=== PATIENT | female | born 1950 | race Caucasian/White ===

== ENCOUNTER 2017-02-28 11:14 | Inpatient (IN) | payer OTHER ==
[2017-02-28] VITALS (8 sets, daily range): BP systolic 71–118; BP diastolic 53–73; PULSE 84–109; RESP 14–26; O2SAT 94–100
[~2017-02-28] VITALS: Ht 162.6 cm; Wt 59.1 kg
--- NOTE | 2017-02-28 11:47 | ED.REPORT ---
HPI-Dyspnea / Wheezing Date of Service Feb 28, 2017 ED Provider: Miles Sierra MD A 66 year old female with a history of hypertension, pneumonia and DVT presents to the ED possible DVT. The pt began experiencing mild left lower extremity swelling on 02/25/2017. By the next morning, the swelling had worsened significantly. This has persisted since and is accompanied by nausea and dyspnea on exertion. The pt denies hematemesis or hematochezia. She states that this does not feel similar to pneumonia. Nursing Notes Stated Complaint: LEFT LEG SWOLLEN,SHORTNESS OF BREATHE Chief Complaint: General Complaint Nursing Notes Reviewed: Yes Allergies: Coded Allergies: No Known Allergies (Unverified , 02/28/17) Scheduled Lisinopril (Lisinopril) 20 Mg Tablet 20 MG PO QAM Scheduled PRN Aspirin (Aspirin) 325 Mg Tablet 325-650 MG PO Q6H PRN PRN Headache Ibuprofen (Ibuprofen) 200 Mg Capsule 200-400 MG PO Q6H PRN PRN For Pain Melatonin (Melatonin) 10 Mg Tablet 10 MG PO HS PRN PRN For Insomnia diphenhydrAMINE HCl (Benadryl) 25 Mg Capsule 25-50 MG PO DAILY PRN PRN ALLERGIES General Time Seen by MD: 11:47 Chief Complaint Other (Possible DVT) Hx Obtained From: Patient Arrived By: Walk-in Sudden in Onset?: No Onset Occurred: 3 days ago Symptom Duration: Since onset Recent Healthcare: No recent hospitalization Similar Sx Previous: Yes Past Medical History Past Medical History hypertension DVT pneumonia Past Surgical History bunion removal Smoking History Never Smoker Social History Alcohol Use: "Social" Other Social History: Ambulatory Status Independent Review of Systems Review of Systems Note: left lower extremity swelling Respiratory: Reports: Dyspnea on exertion Cardiovascular: Denies: Chest pain Musculoskeletal: Denies: Back pain, Neck pain Skin: Denies Rash Complete sys rev & neg: except as marked. GI: Denies: Abdominal pain, Hematemesis, Hematochezia, Vomiting Physical Exam Initial Vital Signs Vital Signs (First) Date Time Temp Pulse Resp B/P Pulse Ox O2 Delivery O2 Flow Rate FiO2 02/28/17 11:39 35.2 109 22 71/53 96 02/28/17 12:14 Room Air Initial VS: Reviewed General/Constitutional: Awake, Alert Neck: Atraumatic, Supple, Full range of motion Respiratory / Chest: Atraumatic, Breath sounds NL, Breath sounds = bilat, No respiratory distress Cardiovascular: Regular rhythm, Heart sounds NL Heart Rate / Rhythm: Positive: Tachycardia posterior tibial pulse audible by Doppler ENT: Atraumatic, Airway patent, Mucous membranes moist Abdomen: Atraumatic, Soft, Non-tender Back: Atraumatic, Full range of motion Lower Extremity / Pelvis / MS: Full range of motion, Neurologic intact left lower extremity edema Skin: Color NL, No rash, Warm, Dry Neurologic: Oriented X3, Speech NL, No motor deficits, No sensory deficits Head / Eyes: Atraumatic, Normocephalic, PERRL, EOMI Upper Extremity / MS: Atraumatic, Full range of motion Psychiatric: Affect NL, Mood NL Interpretation & Diagnostics Interpretation & Diagnostics: Left Veinous Duplex US: IMPRESSION: 1. Extensive deep venous thrombosis demonstrated throughout the left lower extremity extending from the common femoral to popliteal veins. Findings were reported to Dr. Escalante on 02/28/17 at 2:35 PM by the apparatus engineering technologist. Dictated by: Joshua Olson M.D. on 02/28/2017 at 14:54 Approved by: Joshua Olson M.D. on 02/28/2017 at 14:57 CT Chest Angio PE: IMPRESSION: 1. Exam is positive for pulmonary embolic disease, left greater than right. 2. Patchy bilateral subpleural areas of atelectasis, likely related to embolic disease. Mild elevation of the left hemidiaphragm. Note: Findings discussed with Dr. Sierra in the ED at 1410 hrs. on 02/28/2017 Dictated by: Priyank Latham M.D. on 02/28/2017 at 14:11 Approved by: Priyank Latham M.D. on 02/28/2017 at 14:24 Lab Results Interpretation Result Diagram: 02/28/17 1200 02/28/17 1223 Test 02/28/17 12:00 02/28/17 12:23 White Blood Count 15.0th/mm3 (3.8-10.1) Red Blood Count 4.47mil/mm3 (3.90-5.20) Hemoglobin 15.8g/dL (12.0-15.6) Hematocrit 44.7% (35.0-46.0) Mean Corpuscular Volume 100.0fL (81-100) Mean Corpuscular Hemoglobin 35.3pg (27.0-35.0) Mean Corpuscular Hemoglobin Concent 35.3% (32.0-37.0) Red Cell Distribution Width 15.2% (12.3-15.4) Platelet Count 189bil/L (150-400) Neutrophils (%) (Auto) 82.0% (40-74) Lymphocytes (%) (Auto) 7.7% (14-46) Monocytes (%) (Auto) 9.1% (4-12) Eosinophils (%) (Auto) 0.5% (0-5) Basophils (%) (Auto) 0.3% (0-3) Prothrombin Time 10.3sec (8.1-12.5) Prothromb Time International Ratio 0.96ratio D-Dimer 2.29mg/L FEU (<0.50) Activated Partial Thromboplast Time 26.1sec (22.8-33.0) Sodium Level 130mEq/L (134-144) Potassium Level 3.5mEq/L (3.5-5.2) Chloride Level 90mEq/L (97-108) Carbon Dioxide Level 17mmol/L (18-29) Blood Urea Nitrogen 23mg/dL (8-27) Creatinine 1.64mg/dL (0.57-1.00) Estimat Glomerular Filtration Rate 45mL/min (>59) Glucose Level 112mg/dL (60-99) Calcium Level 8.7mg/dL (8.5-10.1) Magnesium Level 1.6mg/dL (1.6-2.6) Total Bilirubin 0.9mg/dL (0.0-1.2) Aspartate Amino Transf (AST/SGOT) 51U/L (0-50) Alanine Aminotransferase (ALT/SGPT) 27U/L (0-32) Alkaline Phosphatase 268U/L (25-165) Troponin T < 0.010ug/L (0.0-0.011) Pro-B-Type Natriuretic Peptide 299.9pg/mL (0-287) Total Protein 6.8g/dL (6.4-8.4) Albumin 3.3g/dL (3.4-5.0) ECG Interpretation ECG Interpretation: normal sinus rhythm with a rate of 92 Time: 12:32 Interpreted by: ED physician X-Ray Chest Interpretation Chest Xray Interpretation: IMPRESSION: 1. Findings compatible with COPD without acute consolidation. Dictated by: Joshua Olson M.D. on 02/28/2017 at 12:37 Approved by: Joshua Olson M.D. on 02/28/2017 at 12:37 Interpretation / Wet Read by: Interpret - Radiologist Re-Eval/Medical Decision Med Decision/Clinical Course Findings suspicious for DVT and PE with associated hypotension and tachycardia. The pressure has been stabilized reasonably with IV fluids. Cardiology is consulted and will most likely be taking this patient to the [facility] for catheter directed TPA. Re-Evaluation/Progress #1: Time of Eval: 12:29 Patient Status: Condition improved Re-Evaluation/Progress Note: Pt rechecked, who is now pain free. Radiology results are discussed. Re-Evaluation/Progress #2: Time of Eval: 13:36 Patient Status: Condition improved Re-Evaluation/Progress Note: Pt rechecked, who is comfortable. Vital signs are reviewed. Re-Evaluation/Progress #3: Time of Eval: 14:12 Re-Evaluation/Progress Note: Pt rechecked and lab results are discussed. Re-Evaluation/Progress #4: Time of Eval: 14:19 Re-Evaluation/Progress Note: Pt rechecked, who is stable. The diagnosis and plan for admission are discussed. The pt understands and agrees with the plan. All questions are addressed at this time. Consultation #1: Referral / Consult Name: Peryc Jackson MD Call Returned at: 14:18 Levelman: Will see patient, Agrees with eval, Agrees with plan Note: Spoke with Dr. Jackson, pulmonology, regarding pt's case. He agrees with the evaluation and will see the pt. Consultation #2: Referral / Consult Name: Anila Cotton DO Call Returned at: 14:38 Levelman: Agrees with eval, Agrees with plan, Accepts admit Note: Spoke with Dr. Cotton, hospitalist, regarding pt's case. Dr. Cotton agrees with the evaluation and agrees to admit the pt. Counseled Regarding: Diagnosis, Lab results, Need for admission Discharge & Departure Impression: Primary Impression: Pulmonary embolism Pulmonary embolism type: other Chronicity: acute Additional Impression: DVT (deep vein thrombosis) in Disposition: ADMITTED TO HOSPITAL Discharge Condition All VS Reviewed: Yes Condition: Stable Referrals: German Villarreal DO Crit Care Except Billable Proc Time Spent: 75-104 minutes (88 minutes) Services Performed: Patient management by me, Time spent at bedside, Reviewing test results, Reviewing imaging, Discussing patient care, Documentation in record, Time with fam/surrogate Scribe Attestation Portions of this note were transcribed by Joanne Liang. I, Dr. Sierra personally performed the history, physical exam and medical decision-making; I reviewed and confirmed the accuracy of the information in the transcribed note. copies to: German Villarreal Timothy S DO Feb 28, 2017 11:47 JOANNE LIANG Feb 28, 2017 11:56
[2017-02-28] MEDS ORDERED: 0.9% Sodium Chloride 1,000 ML IV ONE (11:51)
[2017-02-28] MEDS ORDERED: Ondansetron 2 mg/mL 2 mL Inj IVPUSH ONE (11:55)
[2017-02-28 12:12] LABS: BASOPHILS % (AUTO) 0.3 % (0-3); EOSINOPHILS % (AUTO) 0.5 % (0-5); MONOCYTES % (AUTO) 9.1 % (4-12); Mean Corpuscular Hemoglobin 35.3 pg (27.0-35.0); Platelet Count 189 bil/L (150-400)
--- NOTE | 2017-02-28 12:39 | DRSVH ---
PROCEDURE: X-RAY CHEST ONE VIEW, PORTABLE ([id number]) INDICATIONS: dyspnea TECHNIQUE: One view of the chest was acquired. COMPARISON: None. FINDINGS: Surgical changes and devices: None. Lungs and pleura: No pleural effusions or pneumothorax. There is hyperinflation of the lungs with mi ld flattening of the hemidiaphragms compatible with COPD. Lungs are clear. Mediastinum: Mediastinal contours appear normal. Heart size is normal. Bones and chest wall: No suspicious bony lesions. Overlying soft tissues appear unremarkable. IMPRESSION: 1. Findings compatible with COPD without acute consolidation. Dictated by: Joshua Olson M.D. on 02/28/2017 at 12:37 Approved by: Joshua Olson M.D. on 02/28/2017 at 12:37
[2017-02-28 13:09] LABS: Magnesium 1.6 mg/dL (1.6-2.6)
[2017-02-28 13:12] LABS: D-Dimer 2.29 mg/L FEU (<0.50); INR 0.96 ratio
[2017-02-28 13:23] LABS: TROPONIN T < 0.010 ug/L (0.0-0.011)
[2017-02-28] MEDS ORDERED: Heparin 5,000 Unit/mL Inj IVPUSH ONE (13:45)
[2017-02-28] MEDS ORDERED: Heparin 25K Unit/500mL 0.45 NS 25,000 UNIT in IV Premix 1 EACH IV ONE (13:45)
[2017-02-28] MEDS: 0.9% Sodium Chloride 1,000 ML IV SCH ×2 (14:09→23:45)
--- NOTE | 2017-02-28 14:26 | DRSVH ---
PROCEDURE: CT ANGIO CHEST PULMONARY EMBOLISM ([id number]) INDICATIONS: dyspnea, h/o PE, leg swelling TECHNIQUE: After the administration of intravenous contrast, 2 mm thick sections acquired from the pulmonary api ceci to the posterior costophrenic angles. 3-dimensional maximum intensity projection (MIP) coronal a nd sagittal reformats were then acquired through the thorax. For radiation dose reduction, the follo wing was used: automated exposure control, adjustment of mA and/or kV according to patient size. COMPARISON: None. FINDINGS: Image quality: Excellent. Pulmonary arteries: Filling defects in the pulmonary arteries are consistent with acute pulmonary emb olic disease, with the largest lesion being a saddle embolus at the bifurcation of the left main pulm onary artery. There is less prominent and more eccentric thrombus in the proximal portion of the righ t lower lobe artery, possibly subacute or chronic. Lungs and pleura: Lungs show areas of subpleural atelectasis, likely related to pulmonary embolic di sease. No pleural effusions or pneumothorax. Central and peripheral airways are patent. Mediastinum: Heart size is normal, without pericardial effusion. No mediastinal or hilar adenopathy . Thoracic aorta is normal in caliber and enhancement. Esophagus is normal in caliber, without hiat al hernia. Bones and chest wall: No suspicious bony lesions. Ribs and thoracic spine appear intact throughout. Thyroid gland appears normal. No axillary or supraclavicular adenopathy. Abdomen: Visualized upper abdominal solid organs appear normal in the early arterial phase of enhanc ement. IMPRESSION: 1. Exam is positive for pulmonary embolic disease, left greater than right. 2. Patchy bilateral subpleural areas of atelectasis, likely related to embolic disease. Mild elevatio n of the left hemidiaphragm. Note: Findings discussed with Dr. Sierra in the ED at 1410 hrs. on 02/28/2017 Dictated by: Priyank Latham M.D. on 02/28/2017 at 14:11 Approved by: Priyank Latham M.D. on 02/28/2017 at 14:24
--- NOTE | 2017-02-28 14:59 | DRSVH ---
PROCEDURE: US VEINOUS LEG DUPLEX UNILATERAL, LEFT INDICATIONS: ho DVt, swelling TECHNIQUE: Real-time imaging, as well as color and pulse Doppler interrogation, were performed of the lower extr emity deep veins from the inguinal ligament to the popliteal fossa. COMPARISON: None. FINDINGS: There is occlusive filling defect within the left common iliac, external iliac, common femoral, super ficial femoral, and popliteal veins. The inferior vena cava appears patent. IMPRESSION: 1. Extensive deep venous thrombosis demonstrated throughout the left lower extremity extending from the common femoral to popliteal veins. Findings were reported to Dr. Escalante on 02/28/17 at 2:35 PM by the magnetic resonance technologist. Dictated by: Joshua Olson M.D. on 02/28/2017 at 14:54 Approved by: Joshua Olson M.D. on 02/28/2017 at 14:57
[2017-02-28] MEDS ORDERED: MELA10TA2 PO (15:24)
[2017-02-28] MEDS ORDERED: ASPI325T32 PO (15:24)
[2017-02-28] MEDS ORDERED: DIPH25CA6 PO (15:24)
[2017-02-28] MEDS ORDERED: IBUP200C PO (15:24)
[2017-02-28] MEDS ORDERED: LISI-567 PO (15:24)
[2017-02-28] MEDS ORDERED: Polyethylene Glycol (PEG) 17 Gm Powder PO PRN (16:10)
[2017-02-28] MEDS ORDERED: Senna-Docusate 8.6-50 mg Tablet PO PRN (16:10)
[2017-02-28] MEDS ORDERED: Alum-Mag Hydrox-Simeth 30 mL Suspension PO PRN (16:10)
[2017-02-28] MEDS ORDERED: Heparin 5,000 Unit/mL Inj IVPUSH PRN (16:15)
[2017-02-28] MEDS ORDERED: Heparin 1,000 Units/500 mL NS Premix IV ONE (16:20)
[2017-02-28] MEDS ORDERED: 0.9% Sodium Chloride 200 ML ONE (16:21)
[2017-02-28] MEDS ORDERED: Heparin 1,000 Unit/mL 10 mL Inj ONE ×2 (16:21→17:37)
[2017-02-28] MEDS ORDERED: Heparin 10,000 Unit/1,000 mL NS Premix IV ONE (16:34)
[2017-02-28] MEDS ORDERED: fentaNYL-PF 50 mCg/mL 2 mL Inj ONE (17:06)
--- NOTE | 2017-02-28 17:12 | CONS ---
[address] [address] CONSULTATION REPORT PATIENT: JAYME MOORE : 1950 MR#: [id number] ADMIT: 02/28/2017 JOB ID: [id number] DATE OF SERVICE: 02/28/2017 REQUESTING PHYSICIAN: Miles Sierra DO REASON FOR EVALUATION: Bilateral pulmonary emboli. HISTORY OF PRESENT ILLNESS: I saw and examined the patient. Please see MARY LOU Santana 's notes for details. IMPRESSION: 1. Submassive bilateral pulmonary emboli with hemodynamic compromise. 2. Occlusive extensive deep venous thrombosis throughout the left lower extremity, extending from left common femoral to left popliteal veins. 3. History of hypertension. PLAN: The patient does not have contraindication to thrombolysis. She does not have uncontrolled hypertension, recent trauma, recent surgery, bleeding disorder, or stroke. She will benefit from catheter directed thrombolysis. The risks and benefits of the procedure have been explained to the patient. She understands and agrees to proceed with the procedure. SUNDAY
--- NOTE | 2017-02-28 17:14 | PCM.CHPCAR ---
Consult Subjective Date of service Feb 28, 2017 Date of admit Feb, Provider Requesting Consult Requesting Provider: Miles Sierra DO Primary Care Physician Primary Care Physician: Other,Physician Chief Complaint Patient presented with leg pain/swelling and SOB History of Present Illness This is a pleasant 66 year old female who presented to the ER with left leg pain /swelling, and SOB. Significant past medical hx; HTN, pneumonia, DVT. On Feb.24, the patient woke up with pain in her left leg. She felt it, and noticed that it felt swollen. She reports not being able to bend her leg. Her leg pain and swelling remained the same through Monday, and Monday, she began to develop SOB and dyspnea with light activity, in addition to her leg pain and swelling. Ximena reports not doing anything that she thought would precipitate the leg swelling/pain, or the onset of SOB. She reports that they seemed to come out of the blue. Ximena symptoms did not improve, or lessen, so she reported to the ER today with continued SOB, dyspnea, and leg pain. Left lower extremity ultrasound demonstrated extensive DVT from common femoral and popliteal veins. CTA demonstrated saddle embolus at the bifurcation of the left main pulmonary artery. There is less prominent and more eccentric thrombus in the proximal portion of the right lower lobe artery, possibly subacute or chronic. Echo, mild RV enlargement Review of Systems Review of Systems 12 point review of system is negative except the ones mentioned in the HPI. The patient denies any recent trauma, recent surgery, bleeding disorder, or stroke. Eyes: Denies: Double or blurred vision Other Problem/recent change in vision Reduced vision Temporary vision loss PMH Past Medical History HTN, PNA, DVT Scheduled Lisinopril (Lisinopril) 20 Mg Tablet 20 MG PO QAM (Reported) Scheduled PRN Aspirin (Aspirin) 325 Mg Tablet 325-650 MG PO Q6H PRN PRN Headache (Reported) Ibuprofen (Ibuprofen) 200 Mg Capsule 200-400 MG PO Q6H PRN PRN For Pain ( Reported) Melatonin (Melatonin) 10 Mg Tablet 10 MG PO HS PRN PRN For Insomnia (Reported) diphenhydrAMINE HCl (Benadryl) 25 Mg Capsule 25-50 MG PO DAILY PRN PRN ALLERGIES (Reported) Current Inpatient Medications Current Medications Morphine Sulfate UP TO 10 mg IV in a 4 h... Q15MIN PRN IVPUSH Last administered on 02/28/17 12:12; Admin Dose 4 MG; Start 02/28/17 at 11:55; Stop at 16:57; Status DC Sodium Chloride 1,000 ml @ 100 mls/hr Q10H IV Last administered on 02/28/17 14: 09; Admin Dose 100 MLS/HR; Start 02/28/17 at 13:45; Stop 02/28/17 at 16:57; Status DC Ondansetron HCl 4 to 8 mg Q4H PRN IVPUSH; Start 02/28/17 at 16:10; Stop 02/28/17 at 16:57; Status DC Senna 2 tablet BID PRN PO; Start 02/28/17 at 16:10; Stop 02/28/17 at 16:57; Status DC Al Hydrox/Mg Hydrox/Simethicone 30 ml Q6 PRN PO; Start 02/28/17 at 16:10; Stop 02/28/17 at 16:57; Status DC Polyethylene Glycol 17 gm DAILY PRN PO; Start 02/28/17 at 16:10; Stop 02/28/17 at 16:57; Status DC Heparin Sodium (Porcine) Per Protocol for a... PRN PRN IVPUSH; Start 02/28/17 at 16:15; Stop 02/28/17 at 16:57; Status DC Allergies: Coded Allergies: No Known Allergies (Unverified , 02/28/17) Family History Family History Father from bladder cancer at 82, smoker Mother with venous valve incompetency, at 78 from stroke Grandfather with "small leg veins" Social History Hx Alcohol Use: YesAlcoholic Drinks Per Day: 1-2, 5 days a weekHx Substance Use: NoHx Tobacco Use: No Smoking Status: Never Smoker Living Arrangement: with Family (With ) Exam Vital Signs Vital Sign - Last Date Time Temp Pulse Resp B/P Pulse Ox O2 Delivery O2 Flow Rate FiO2 02/28/17 16:56 110 20 95/63 99 Room Air 02/28/17 11:39 35.2 Objective General: no acute distress. EENT: eyes unicteric, MMM Neck: supple, no thyromegaly Pulmo: normal breathing sounds bilaterally, no crackles, no wheezing Cardio: RRR, S1&S2 normal; no murmur appreciated, JVP is not elevated Abdomen: nontender with palpation Exeremities: 2 (+) pitting edema noted in LLE, peripheral pulses are preserved Skin: no rash Neuro: A@Ox3, no gross abnormalities Lab and Diagnostics Result Diagram: 02/28/17 1200 02/28/17 1223 Assessment & Plan Assessment The patient has an extensive DVT to her LLE, and also has acute pulmonary embolic disease in her pulmonary arteries. Problems: (1) DVT (deep venous thrombosis) Qualifiers: DVT location: lower extremity Laterality: left Plan: Patient is on a heparin drip. Status: Acute ICD Code: I82.409 (2) Saddle embolism of pulmonary artery Qualifiers: Chronicity: acute Plan: Pt is to go to the [facility], and receive catheter directed thrombolysis Status: Acute ICD Code: I26.92 Maddy Barahona Feb 28, 2017 17:14 Plan: Pt is to go to the [facility], and receive thrombolysis Status: Acute ICD Code: I26.92 Maddy Barahona Feb 28, 2017 17:14
[2017-02-28] MEDS ORDERED: Alteplase (Cathflo) Inj 10 MG in 0.9% Sodium Chloride 250 ML IV ONE (17:25)
[2017-02-28] MEDS ORDERED: HYDROmorphone 1 mg/mL Inj IV PRN (17:35)
[2017-02-28] MEDS ORDERED: LORazepam 0.5 mg Tablet PO PRN (17:35)
--- NOTE | 2017-02-28 18:17 | PCM.HPMED ---
Subjective Date of Service Feb 28, 2017 Primary Provider: Admitting Physician: Percy Jackson MD Primary Care Physician: Other,Physician Attending Physician: Percy Jackson MD Chief Complaint: Patient is a 66-year-old female from home To the ED with significant SOB and left leg swelling. History of Present Illness: Patient carries a medical history significant for only hypertension. Per patient, she states significant left leg swelling suddenly appeared last Monday morning (02/25) when she woke up, extending from thigh to feet. Swelling increased by Monday with associated nausea and vomiting. And on Monday , patient additionally has palpitation and diaphoretic. Patient sought medical attention after she became more dyspneic with exertion and lightheadedness today. Ambulate limited to 5 feet with associated shortness of breath. Pt reports that she is a fairly active person, doing yardwork before Monday, and denies any recent traveling or periods of immobility. She denies any prior histories of miscarriages. Interestingly, patient reports a family history of blood clots, great grandfather positive for blood clots in the lower legs, and mother with "small leg veins". Pt had a similar episode of leg swelling in the past, right leg swelling. Patient reports no workup was done nor medication given however. Recently, patient has noted significant weight loss, 10-15 pounds within the last 6 months. She reports early satiety. Patient though denies any abdominal pain, black tarry stool, constipation, hematemesis, or ever completed a screening colonoscopy. In the ED, patient found to have significant left lower leg swelling with tachycardia and blood pressure 72/52. Emergent duplex found extensive DVT thrombosis extending from the left common femoral to the popliteal veins. ECT angio showed saddle emboli in the left main pulmonary arteries and in the proximal portion of the right lower lobe artery. Cardiology was consulted, and agreed evaluate patient for ECOS prior to admission into CCU. Review of Systems: A comprehensive review of systems was conducted with the patient and found to be negative except as above in the History of Present Illness. Allergies Coded Allergies: No Known Allergies (Unverified , 02/28/17) Home Medications Lisinopril 20 mg daily PMH Hypertension Surgical History Tonsillectomy Family History Father from bladder cancer at 82, smoker Mother with venous valve incompetency, at 78 from stroke Grandfather with "small leg veins" Social History Hx Alcohol Use: Yes Alcoholic Drinks Per Day: 1-2, 5 days a week Hx Substance Use: No Hx Tobacco Use: No Smoking Status: Never Smoker Living Arrangement: with Family (With ) Exam Vital Signs Vital Sign - Last Date Time Temp Pulse Resp B/P Pulse Ox O2 Delivery O2 Flow Rate FiO2 02/28/17 16:56 102 20 113/73 99 Room Air 02/28/17 11:39 35.2 Exam General: No acute distress, appropriately interactive, no conversation or dysrhythmia HEENT: Normocephalic, atraumatic. PERRLA, EOMI, Anicteric sclerae, moist conjunctivae. Neck: cannot appreciate JVD, No bruits. No lymphadenopathy or thyromegaly. Cardiovascular: Regular rate and rhythm with no murmurs, rubs, or gallops appreciated Pulmonary: Bilateral air sound, mild coarse breath of the lower basis, otherwise no crackles or wheezes. Abdomen: +Bowel sound, Soft, nontender, nondistended. Extremities: No clubbing or cyanosis, no lymphedema, unilateral left leg 2+ pitting edema up to the thigh, no tenderness, no redness or heat. Skin: Normal temperature, turgor, and texture; no rash. No visualized skin ulcer. Neurological: CN II-VII grossly intact, moving equally on all 4 extremities Psychiatric: Normal mood and affect. AOx3 Lab and Diagnostics Result Diagram: 02/28/17 1200 02/28/17 1223 Assessment & Plan Patient is a 66-year-old female with a medical history significant for hypertension presents with left leg pain and shortness of breath, found to have massive pulmonary embolism with left leg DVT. Thromboembolic disease -Unprovoked: Possible malignancy, hereditary-[place] 5 mutation. -ECOS per cardiology to reduce clot burden -Heparin drip DVT PE protocol in place -athletic monitor Kidney insufficiency -Likely right heart failure, hypoperfusion -anion gap 23, possible lactic acidosis -latic acid ordered -conservative fluid management until Echo reading back Transaminitis -AST and alkphos elevated -perhaps congested liver -lipase ordered Leukocytosis -likely stressed induced -UA pending Hyponatremic -uncertain etiology -Urine Na and Osmo ordered Hypertension -Holding lisinopril secondary to hypotension DVT prophylaxis: Heparin drip as above Status full code Patient Status: Patient is admitted under inpatient status with expected length of stay GREATER than 2 midnights due to severity of presenting symptoms, risk of adverse event, and complexity of treatment plan. Time spent 30 minutes Attending Statement Patient (Ms Blanca) seen and examined with Dr Curry, agree with assessment and plan detailing clinical care. I was involved in all aspects of the care , exam and care plan. She will be treated in the CCU with [facility] tonight per protocol. Bao Curry DO Feb 28, 2017 18:17 Manfred Busby MD Mar 01, 2017 15:31
--- NOTE | 2017-02-28 18:22 | DI96 ---
[address] [address] PERIPHERAL CATHETERIZATION/INTERVENTION REPORT PATIENT: JAYME MOORE : 1950 MR#: [id number] ADMIT: 02/28/2017 JOB ID: [id number] DATE OF SERVICE: 02/28/2017 PATIENT PROFILE: The patient is a 66-year-old lady who presented with submassive bilateral pulmonary emboli with hemodynamic compromise. PROCEDURE: 1. Conscious sedation for 25 minutes. 2. Central venous access from the right groin under ultrasound guidance twice. 3. EKOS catheter placement in the right middle lobe branch. 4. EKOS catheter placement in the left lower lobe branch. 5. Catheter-directed thrombolysis initiated. COMPLICATION: None. METHOD: Conscious sedation was achieved with IV Versed and IV fentanyl. Central venous access was obtained from the right groin under 1% lidocaine local anesthesia using a micropuncture needle and placing a 6-[place] sheath. This was performed under ultrasound guidance. The venous access and venous sheath were performed twice. A 3DRC catheter with a [place] Advantage wire was directed into the right middle lobe. It was then exchanged to an EKOS catheter with a treatment length of 12 cm. This was secured in situ. The 3DRC catheter was again used to direct a [place] Advantage wire into the left lower lobe branch. It was exchanged to an EKOS catheter with a treatment length of 12 cm. This was secured in situ. The patient was then transferred to intensive care unit in stable condition. Catheter-directed thrombolysis will be initiated at 1 mg/hour for 10 hours. RESULTS: 1. Successful EKOS catheter placement in the right middle lobe branch and left lower lobe branch. 2. Catheter-directed thrombolysis initiated. [facility] N[facility]SING FACILITYDemetrius
--- NOTE | 2017-02-28 19:35 | NUR ---
Rec'd to room 2017 from fence laborer at 1830. Right groin sheath with EKOS catheters in place. TPA, heparin and coolant initiated by fence laborer staff as ordered. Peripheral heparin gtt at 800u/h. Pt is alert and appropriate. Denies pain or SOB. Abdalla in place with clear yellow uop. VSS. SR with PVC's and 5 beat salvos VT. has called, update given with pt consent. Report and bedside rounds with beef killer RN's.
[2017-02-28] MEDS: Ondansetron 2 mg/mL 2 mL Inj IVPUSH PRN (21:35)
[2017-03-01 00:03] VITALS: BP 89/48; PULSE 89; RESP 21; O2SAT 96
[2017-03-01 04:51] VITALS: BP 95/61; PULSE 82; RESP 16; O2SAT 95
--- NOTE | 2017-03-01 05:49 | NUR ---
EKOS/PE EKOS continued through senior mobile application developer, R groin site stable. Elina from electronic lab technician removed EKOS catheter at 0615, sheath remains in place with heparin infusing TKO. Patient hypotensive overnight while resting, SBP 100s when awake. Aptt critical high 236.9, peripheral Heparin infusion on hold per MD. AM labs done at 0550, results pending. Gums stopped bleeding this AM, patient has gauze in mouth to help with clotting. Plan for patient to return to electronic lab technician today to address LLE DVT, LLE red, swollen, painful, 2mg morphine given x1 last night with zofran. Patient's and friend received updates on the phone through night.
[2017-03-01 06:00] LABS: BASOPHILS % (AUTO) 0.9 % (0-3); EOSINOPHILS % (AUTO) 2.4 % (0-5); MONOCYTES % (AUTO) 10.1 % (4-12); Mean Corpuscular Hemoglobin 35.6 pg (27.0-35.0); Mean Corpuscular Volume 102.2 fL (81-100); NEUTROPHILS % (AUTO) 69.5 % (40-74); Platelet Count 125 bil/L (150-400)
[2017-03-01 08:00] VITALS: BP 95/59; PULSE 75; RESP 16; O2SAT 100
--- NOTE | 2017-03-01 09:03 | NUR ---
heparin off 0900 Dr Hernandes instructs RN to turn off all heparin. Peripheral heparin off and heparin via sheath off.
--- NOTE | 2017-03-01 09:08 | PCM.PNCARD ---
Subjective Date of service Mar 01, 2017 Chief Complaint Patient presented with leg pain/swelling and SOB History of Present Illness This is a pleasant 66 year old female who presented to the ER on 02-28-2017 with left leg pain/swelling, and SOB. Significant past medical hx; HTN, Pneumonia, DVT. On Feb.24, the patient woke up with pain in her left leg. She felt it, and noticed that it felt swollen. She reports not being able to bend her leg. Her leg pain and swelling remained the same through Monday, and Monday, she began to develop SOB and dyspnea with light activity, in addition to her leg pain and swelling. Ximena reports not doing anything that she thought would precipitate the leg swelling/pain, or the onset of SOB. She reports that they seemed to come out of the blue. Ximena symptoms did not improve, or lessen, so she reported to the ER with continued SOB, dyspnea, and leg pain. In the ED, patient was found to have significant left lower leg swelling with tachycardia and blood pressure 72/52. Emergent duplex found extensive DVT thrombosis extending from the left common femoral to the popliteal veins. ECT angio showed saddle emboli in the left main pulmonary arteries and in the proximal portion of the right lower lobe artery Patient went for catheter directed thrombolysis for bilateral PE on the evening of 02-28-2017. The procedure when without complications, and further catheter directed thrombolysis for her DVT in her LLE will be considered for today. Subjective: Patient lying comfortably in bed, in no signs of distress. Patient had uneventful night, and reports still having pain in her left leg. Cardiovascular: Reports: Edema, Denies: Chest Pain, Palpitations, Rapid Heart Rate, SOB on Exertion, SOB while laying flat Respiratory: Denies: Shortness of Breath (Denies any periods of dyspnea ) Additional Information: Exam Vital Signs Vital Sign - Last Date Time Temp Pulse Resp B/P Pulse Ox O2 Delivery O2 Flow Rate FiO2 03/01/17 04:51 82 16 95/61 95 Room Air 03/01/17 00:03 37.0 Intake and Output 02/28/17 02/28/17 03/01/17 Cumulative From/Thru 15:00 23:00 07:00 02/28/17 11:39 - 03/01/17 05:00 Intake Total 2000 ml 2383 ml 4383 ml Output Total 635 ml 635 ml Balance 2000 ml 1748 ml 3748 ml Intake Oral 120 ml 120 ml IV Total 2000 ml 2263 ml 4263 ml Output Urine Total 635 ml 635 ml Additional Information: General: Normal affect, calm mood Neck: Inspection: No jugular venous distention or pulsations. Auscultation: No carotid bruits Cardiac: Inspection: Chest is symmetric, no scars. No cardiac heaves or lifts. Symmetrical expansion with respiration, no other wall motions. Palpation: No thrills appreciated. Auscultation: Normal S1 and S2, with regular rate and rhythm. No murmur. No S3 or S4, no friction rub. Peripheral Vascular: Extremities Inspection: No rashes. Cath site to right groin is clean, dry, and without erythema. Swelling to left lower and left upper leg. Erythema to left foot. Darkness to bottom of foot. No clubbing in fingernails. Palpation: Cath site to right groin is warm, soft, and not painful to palpation. Hands warm and pink. Feet are are equally warm. 2+ pitting edema to left lower extremity. Lab and Diagnostics Result Diagram: 03/01/1753 03/01/17 0553 Assessment & Plan Problems: (1) DVT (deep venous thrombosis) Qualifiers: DVT location: lower extremity Laterality: left Plan: Pt to have catheter thrombolysis today for DVT in left lower extremity The patient does not have contraindication to thrombolysis. She does not have uncontrolled hypertension, recent trauma, recent surgery, bleeding disorder, or stroke. She will benefit from catheter directed thrombolysis. The risks and benefits of the procedure have been explained to the patient. She understands and agrees to proceed with the procedure Status: Acute ICD Code: I82.409 (2) Saddle embolism of pulmonary artery Qualifiers: Chronicity: acute Status: Acute ICD Code: I26.92 Plan Remove femoral catheter today Maddy Barahona Mar 01, 2017 09:08
[2017-03-01] MEDS ORDERED: 0.9% Sodium Chloride 1,000 ML ONE (09:47)
[2017-03-01] MEDS ORDERED: Heparin 1,000 Units/500 mL NS Premix IV ONE (09:47)
[2017-03-01] MEDS ORDERED: Heparin 10,000 Unit/1,000 mL NS Premix IV ONE (10:28)
[2017-03-01] MEDS ORDERED: Heparin 1,000 Unit/mL 10 mL Inj ONE (10:28)
[2017-03-01] MEDS ORDERED: fentaNYL-PF 50 mCg/mL 2 mL Inj ONE (10:40)
[2017-03-01] MEDS ORDERED: Alteplase (Cathflo) Inj 12 MG in 0.9% Sodium Chloride 250 ML IV ONE (10:45)
[2017-03-01] MEDS ORDERED: Magnesium Sulf 4 Gm/100 mL H2O 4 GM in IV Premix 1 EACH IV ONE (10:50)
--- NOTE | 2017-03-01 10:58 | NUR ---
transfer to prosthetic lab technician 1000 pt goes to prosthetic lab technician for ekos to LLeg DVT. Consent already signed in chart. Report given to prosthetic lab technician RN
--- NOTE | 2017-03-01 11:05 | NUR ---
Social Work: Initial Assessment/Multidisciplinary Rounds D: Per EMR review, pt is a 66 year old female admitted for Left Leg Swollen, Shortness of Breath. Pt is [facility] with no supplement, LTC or VA benefits. PCP is Dr. Reyes at the [facility] in [place]. NOK is Earl Blanca, spouse, . Advanced directives not complete- MECHANIC RECOVERY provided the patient with information. No RA Score entered at this time. Pt discussed in Multidisciplinary rounds. Pt is being follow by CCU team. Capacity for self care discussed; pt was previously I. Discharge needs unknown at this time and depend on clinical course. MECHANIC RECOVERY met with the patient at bedside. Social work/dcp role explained, contact information and discharge planning checklist provided. See initial assessment. Pt lives in [place] with her spouse in a single story home (with daylight basement) with 4 steps to enter. The patient uses no DME, has no issues navigating stairs and uses no DME. The patient continues to drive and is I with all ADLs and self care. The patient has never had HH or skilled rehab. The patient is very receptive to discharge planning pending her clinical course during hospitalization. A: Pt who is I at baseline but may require supportive services at discharge P: Evolving; MECHANIC RECOVERY to continue to follow pt's clinical course closely to determine discharge needs and barriers. CY Barbosa Addendum: 03/01/17 at 1120 by JOVANNY BETTENCOURT Amended: Links added.
--- NOTE | 2017-03-01 11:39 | DI96 ---
[address] [address] PERIPHERAL CATHETERIZATION/INTERVENTION REPORT PATIENT: JAYME MOORE : 1950 MR#: [id number] ADMIT: 02/28/2017 JOB ID: [id number] DATE: 03/01/2017 PATIENT PROFILE: The patient is a 66-year-old lady who presented with submassive bilateral pulmonary emboli. She underwent catheter directed thrombolysis to her pulmonary emboli yesterday. She was also found to have occlusive deep venous thrombosis of the left lower extremity. PROCEDURE: 1. Conscious sedation for 32 minutes. 2. Venous access to the left popliteal vein under ultrasound guidance. 3. Left common femoral venogram. 4. Left common iliac venogram. 5. Catheter-directed thrombolysis to the left femoral vein, left common femoral vein, left external iliac vein and left common iliac vein. COMPLICATION: None. METHOD: The patient was put in the prone position. Conscious sedation was achieved with IV Versed and IV fentanyl. The left popliteal fossa was prepped and draped under standard sterile technique. The left popliteal vein was accessed by using micropuncture needle under ultrasound guidance. This was then exchanged to a 6-[place] sheath. There is no venous return at this point. A Line [place] wire together with a 4-Kos[place] slip cath was then directed into the left common femoral vein. Left common femoral venogram demonstrated large thrombus. The slip catheter was then advanced further into the left common iliac vein. Left common iliac venogram was performed and demonstrates thrombus up to the inferior vena cava and common iliac vein junction. The slip cath was then exchanged over a Line [place] Advantage wire to an EKOS catheter with a treatment length of 50 cm. This was secured in situ. The patient was then transferred to intensive care unit in stable condition. TOTAL CONTRAST USED: 15 cc. FLUOROSCOPY TIME: 1 minute. RESULTS: 1. Deep venous thrombosis of the left femoral vein and extended to the left common iliac vein. 2. Catheter-directed thrombolysis to the left common iliac vein, left external iliac vein, left common femoral vein and left femoral vein was initiated at 1.2 mg/hour for 10 hours. MTDD
[2017-03-01] MEDS ORDERED: KCl 40 mEq/D5W 500 mL 40 MEQ in IV Premix 1 EACH IV ONE (12:02)
[2017-03-01 12:05] VITALS: BP 124/76; PULSE 80; RESP 18; O2SAT 99
[2017-03-01] MEDS: Heparin 25K Unit/500mL 0.45 NS 25,000 UNIT in IV Premix 1 EACH IV SCH (13:41)
[2017-03-01] MEDS: 0.9% Sodium Chloride 1,000 ML IV SCH ×2 (13:42→19:45)
--- NOTE | 2017-03-01 16:22 | PCM.PNMED ---
Subjective Date of Service Mar 01, 2017 Subjective Overnight, patient received ECOS to the the right middle lobe and left lower lobe branch. Patient denies any new complaints. No SOB/cp. 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 APPT 266. Heparin thus held part of the morning. No gingival bleeding on exam. Denies any diarrhea. H/H stable on repeat labs. Exam Vital Signs Vital Sign - Last Date Time Temp Pulse Resp B/P Pulse Ox O2 Delivery O2 Flow Rate FiO2 03/01/17 04:51 82 16 95/61 95 Room Air 03/01/17 00:03 37.0 Intake and Output 02/28/17 02/28/17 03/01/17 Cumulative From/Thru 15:00 23:00 07:00 02/28/17 11:39 - 03/01/17 05:00 Intake Total 2000 ml 2383 ml 4383 ml Output Total 635 ml 635 ml Balance 2000 ml 1748 ml 3748 ml Intake Oral 120 ml 120 ml IV Total 2000 ml 2263 ml 4263 ml Output Urine Total 635 ml 635 ml Exam General: No acute distress, appropriately interactive, no conversation or dysrhythmia HEENT: no gingival bleeding. Normocephalic, atraumatic. PERRLA, EOMI, Anicteric sclerae, moist conjunctivae. Neck: cannot appreciate JVD, No bruits. No lymphadenopathy or thyromegaly. Cardiovascular: Regular rate and rhythm with no murmurs, rubs, or gallops appreciated Pulmonary: Bilateral air sound, mild coarse breath of the lower basis, otherwise no crackles or wheezes. Abdomen: +Bowel sound, Soft, nontender, nondistended. Extremities: No clubbing or cyanosis, no lymphedema, unilateral left leg 2+ pitting edema up to the thigh, no tenderness, no redness or heat. Skin: Normal temperature, turgor, and texture; no rash. No visualized skin ulcer. Neurological: CN II-VII grossly intact, moving equally on all 4 extremities Psychiatric: Normal mood and affect. AOx3 IVs and Medications IV Fluids NS 100cc/hr Medications Reviewed: Medications were reviewed in detail Lab and Diagnostics Result Diagram: 03/01/17 1445 03/01/17 0553 Assessment & Plan Patient is a 66-year-old female with a medical history significant for hypertension presents with left leg pain and shortness of breath, found to have massive pulmonary embolism with left leg DVT. 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 UA pending -Anticoagulation for life, considering Eliquis. Kidney insufficiency, resolved -Likely right heart failure, hypoperfusion Transaminitis, resolving -AST and alkphos elevated -perhaps congested liver -lipase negative Leukocytosis, resolved -likely stressed induced Hyponatremia, resolved -plasma osmo 280, patient euvolumic -uncertain etiology Hypertension -Holding lisinopril secondary to hypotension DVT prophylaxis: Heparin drip as above Status full code Disposition: 1-2 days monitoring for bleeding s/p ECOS and transitioning patient to an oral anticoagulant. Resuscitation Status: CPR: Attempt Resuscitation Attending Statement I evaluated the patient on rounds today. I agree with the assessment and plan as stated above. Bao Curry DO Mar 01, 2017 15:50 Mike Gimenez MD Mar 02, 2017 08:00
[2017-03-01 16:45] VITALS: BP 116/66; PULSE 89; RESP 20; O2SAT 98
--- NOTE | 2017-03-01 18:46 | NUR ---
bleeding [address] Hernandes, pt is bleeding from her mouth. Orders received to stop PIV heparin and resume heparin per DVT/PE protocol 1 hr after EKOS is completed.
[2017-03-01] MEDS: Ondansetron 2 mg/mL 2 mL Inj IVPUSH PRN (19:56)
[2017-03-01 20:02] VITALS: BP 112/59; PULSE 91; RESP 19; O2SAT 95
[2017-03-02] VITALS (10 sets, daily range): BP systolic 100–140; BP diastolic 61–88; PULSE 66–93; RESP 14–21; O2SAT 95–97
[2017-03-02] MEDS: 0.9% Sodium Chloride 1,000 ML IV SCH ×3 (01:52→21:01)
[2017-03-02 05:24] LABS: Magnesium 2.1 mg/dL (1.6-2.6)
[2017-03-02] MEDS: Heparin 25K Unit/500mL 0.45 NS 25,000 UNIT in IV Premix 1 EACH IV SCH ×2 (07:16→10:53)
--- NOTE | 2017-03-02 07:49 | NUR ---
EKOS/PE/DVT Patient's EKOS catheter to L popliteal sheath was d/c'd by industrial laborer staff at 2130 and R femoral vein sheaths d/c'd by industrial laborer staff at 2230. Heparin restarted per PE/DVT protocol through LLE sheath. Possible plan to go to industrial laborer for LLE imaging before sheath is removed. Some bleeding to right forearm scab and R side molar/tooth in mouth, improved through the night. Patient able to get some sleep. R groin site soft, slightly tender, no hematoma. Rosi KWOK at 0602 for critical high aptt 170.4. Recheck aptt at 0700. Plan to replace K+ this AM.
--- NOTE | 2017-03-02 09:20 | PCM.PNCARD ---
Subjective Date of service Mar 02, 2017 Chief Complaint Patient presented with leg pain/swelling and SOB History of Present Illness This is a pleasant 66 year old female who presented to the ER on 02-28-2017 with left leg pain/swelling, and SOB. Significant past medical hx; HTN, Pneumonia, DVT. On Feb.24, the patient woke up with pain in her left leg. She felt it, and noticed that it felt swollen. She reports not being able to bend her leg. Her leg pain and swelling remained the same through Monday, and Monday, she began to develop SOB and dyspnea with light activity, in addition to her leg pain and swelling. Ximena reports not doing anything that she thought would precipitate the leg swelling/pain, or the onset of SOB. She reports that they seemed to come out of the blue. Ximena symptoms did not improve, or lessen, so she reported to the ER with continued SOB, dyspnea, and leg pain. In the ED, patient was found to have significant left lower leg swelling with tachycardia and blood pressure 72/52. Emergent duplex found extensive DVT thrombosis extending from the left common femoral to the popliteal veins. ECT angio showed saddle emboli in the left main pulmonary arteries and in the proximal portion of the right lower lobe artery Patient went for catheter directed thrombolysis for bilateral PE on the evening of 02-28-2017. The following day, 03-01-2017, the patient went for Catheter- directed thrombolysis to the left femoral vein, left common femoral vein, left external iliac vein and left common iliac vein. The procedures went without complication, and the patient has been stable on the ICU. The patient is to go back to the engineer geophysical laboratory today, 03-02-2017, to evaluate whether there is a need or not, for more thrombolysis to the left lower extremity. Subjective: Pt is awake in bed, resting without signs of distress. She reports no pain in her left leg, and that her breathing is better today. The nurse commented that the patient had an uneventful night, and that the engineer geophysical laboratory was on their way up to get the patient for planned procedure. Additional Information: No headache, chest pain, palpitations, dizziness, SOB, N/V. Pt has slight tenderness to right groin area, and area behind the left knee. Exam Vital Signs Vital Sign - Last Date Time Temp Pulse Resp B/P Pulse Ox O2 Delivery O2 Flow Rate FiO2 03/02/17 04:35 36.8 83 18 100/61 95 Room Air Intake and Output 03/01/17 03/01/17 03/02/17 Cumulative From/Thru 15:00 23:00 07:00 02/28/17 11:39 - 03/02/17 06:39 Intake Total 2479 ml 2526 ml 9388 ml Output Total 600 ml 800 ml 2035 ml Balance 1879 ml 1726 ml 7353 ml Intake Oral 1200 ml 960 ml 2280 ml IV Total 1279 ml 1566 ml 7108 ml Output Urine Total 600 ml 800 ml 2035 ml Additional Information: General: Normal affect, pleasant mood. Skin: Warm, dry. Slight echymosis to area behind left knee. Head: Atraumatic Eyes: Pupils equal, round reactive. Conjunctiva clear. Ears: Symmetrical. Free from discharge. Non tender. Nose: No discharge, tenderness, or maxillary tenderness. Mouth: Moist, pink. Neck: No masses. No adenopathy. No tenderness. Trachea midline Heart: NSR. No murmurs, rubs, or gallops. No carotid bruits appreciated. Normotensive. Lungs: Chest symmetrical with respirations. No wheezes or crackles heard. Abdomen: Flat, soft, non tender. Active bowel sounds on all quadrants Peripheral Vascular: Inspection: No rashes. Cath site to right groin is clean, dry, and without erythema. Swelling to left lower and left upper leg. Erythema to left foot. Darkness to bottom of foot. No clubbing in fingernails. Palpation: Cath site to right groin is warm, soft, and not painful to palpation. Warm extremities. 1+ pitting edema to left lower extremity. 3+ pulses to bilateral upper extremities(radial). 2+ pulses to bilateral lower extremities (posterial tibial). Lab and Diagnostics Result Diagram: 03/02/1744903/02/17 045 Assessment & Plan Problems: (1) DVT (deep venous thrombosis) Qualifiers: DVT location: lower extremity Laterality: left Plan: Venogram showed residual thrombus. Repeat EKOS for 10hrs from left common femoral vein to left common illiac vein. Status: Acute ICD Code: I82.409 (2) Saddle embolism of pulmonary artery Qualifiers: Chronicity: acute Plan: Continue to monitor. Supplemental O2 as needed to maintain 02 > 92% Status: Acute ICD Code: I26.92 Resuscitation Status: CPR: Attempt Resuscitation Maddy Barahona Mar 02, 2017 09:20
[2017-03-02] MEDS ORDERED: Heparin 1,000 Units/500 mL NS Premix IV ONE (09:27)
[2017-03-02] MEDS ORDERED: Heparin 1,000 Unit/mL 10 mL Inj ONE (09:27)
[2017-03-02] MEDS ORDERED: fentaNYL-PF 50 mCg/mL 2 mL Inj ONE (09:37)
[2017-03-02] MEDS ORDERED: Heparin 10,000 Unit/1,000 mL NS Premix IV ONE (09:38)
[2017-03-02] MEDS ORDERED: Alteplase (Cathflo) Inj 10 MG in 0.9% Sodium Chloride 250 ML IV ONE (09:45)
[2017-03-02] MEDS ORDERED: LORazepam 0.5 mg Tablet PO PRN (09:45)
--- NOTE | 2017-03-02 10:30 | DI96 ---
[address] [address] PERIPHERAL CATHETERIZATION/INTERVENTION REPORT PATIENT: JAYME MOORE : 1950 MR#: [id number] ADMIT: 02/28/2017 JOB ID: [id number] DATE OF PROCEDURE: 03/02/2017 PATIENT PROFILE: The patient is a 66-year-old woman who presented with bilateral pulmonary emboli and deep venous thrombosis of the left lower extremity. She underwent catheter-directed thrombolysis to the pulmonary emboli on February 28, 2017, and catheter-directed thrombolysis to the left lower extremity on March 01, 2017. She reports feeling better in every way. Her breathing is better. The pain in her left leg has disappeared. PROCEDURE: 1. Conscious sedation for 39 minutes. 2. Left lower extremity venogram. 3. Catheter-directed thrombolysis to the left common iliac vein, left external iliac vein and left common femoral vein. COMPLICATIONS: None. METHOD: The left lower extremity venogram was performed via the existing sheath in her left popliteal fossa. This was performed by injecting contrast in the AP view. It demonstrated residual thrombus proximally. The patient was put in a prone position. The left popliteal fossa was prepped and draped under standard sterile technique. The venous sheath was exchanged to a new 6-[place] sheath. A [place] Advantage wire was placed inside the left femoral vein up into the left inferior vena cava. An EKOS catheter with a treatment length of 30 cm was then placed at the left common iliac vein, left external iliac vein and left common femoral vein. This was secured in situ. The patient was then transferred to intensive care unit in stable condition. TOTAL CONTRAST USED: 10 cc. FLUOROSCOPY TIME: 0.5 minutes. RESULTS: 1. The left femoral vein is now free of thrombus. 2. Residual thrombus in the left common femoral vein, left iliac vein and left common iliac vein. 3. Catheter-directed thrombolysis was initiated to the left common iliac, left external iliac and left common femoral veins. It will be infused at 1 mg/hour for 10 hours. MTDD
--- NOTE | 2017-03-02 13:27 | PCM.PNMED ---
Subjective Date of Service Mar 02, 2017 Subjective She denies any new complaints, she denies any shortness of breath, no increasing left leg pain or swelling. Again overnight, patient PTT supratherapeutic with associated gingival rebleeding and right forearm wound bleeding. Heparin was thus stopped till PTT down to therapeutic range. Patient denies any hematemesis, hematemesis, nosebleed, diarrhea, dark/tarry stool. Patient does state some mild back pain, however no break in the skin or the development of decubitus ulcer noted. Patient initially received Ecos to the pulmonary arteries, then, left common iliac and femoral veins twice within the last 2 days. Exam Vital Signs Vital Sign - Last Date Time Temp Pulse Resp B/P Pulse Ox O2 Delivery O2 Flow Rate FiO2 03/02/17 12:30 82 20 133/76 Room Air 98 03/02/17 11:30 97 03/02/17 10:45 36.7 Intake and Output 03/01/17 03/01/17 03/02/17 Cumulative From/Thru 15:00 23:00 07:00 02/28/17 11:39 - 03/02/17 06:39 Intake Total 2479 ml 2526 ml 9388 ml Output Total 600 ml 800 ml 2035 ml Balance 1879 ml 1726 ml 7353 ml Intake Oral 1200 ml 960 ml 2280 ml IV Total 1279 ml 1566 ml 7108 ml Output Urine Total 600 ml 800 ml 2035 ml Exam General: No acute distress, appropriately interactive, no conversation or dysrhythmia HEENT: no gingival bleeding. Normocephalic, atraumatic. PERRLA, EOMI, Anicteric sclerae, moist conjunctivae. Neck: cannot appreciate JVD, No bruits. No lymphadenopathy or thyromegaly. Cardiovascular: Regular rate and rhythm with no murmurs, rubs, or gallops appreciated Pulmonary: Bilateral air sound, mild coarse breath of the lower basis, otherwise no crackles or wheezes. Abdomen: +Bowel sound, Soft, nontender, nondistended. Extremities: No clubbing or cyanosis, no lymphedema, unilateral left leg 2+ pitting edema up to the thigh, no tenderness, no redness or heat. Skin: Normal temperature, turgor, and texture; no rash. No visualized skin ulcer. Neurological: CN II-VII grossly intact, moving equally on all 4 extremities Psychiatric: Normal mood and affect. AOx3 Lab and Diagnostics Result Diagram: 03/02/1744903/02/17449 Assessment & Plan Patient is a 66-year-old female with a medical history significant for hypertension presents with left leg pain and shortness of breath, found to have massive pulmonary embolism with left leg DVT. Thromboembolic disease -Unprovoked: Possible malignancy, hereditary-[place] 5 mutation. 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 UA pending -Anticoagulation for life, considering Eliquis. Normocytic anemia, not present on admission, new -Partially hemodilution, concern for bleeding -Trending H&H -Transfuse if hemoglobin less than 7. Kidney insufficiency, resolved -Likely right heart failure, hypoperfusion Transaminitis, resolving -AST and alkphos elevated -perhaps congested liver -lipase negative Leukocytosis, resolved -likely stressed induced Hyponatremia, resolved -plasma osmo 280, patient euvolumic -uncertain etiology Hypertension -Holding lisinopril secondary to hypotension DVT prophylaxis: Heparin drip as above Status full code Disposition: 1-2 days monitoring for bleeding s/p ECOS and transitioning patient to an oral anticoagulant. Resuscitation Status: CPR: Attempt Resuscitation Time spent 35 min Attending Statement I interviewed and examined the patient on rounds today. I agree with the assessment and plan as stated above. Bao Curry DO Mar 02, 2017 13:27 Mike Gimenez MD Mar 02, 2017 16:49
--- NOTE | 2017-03-02 18:37 | NUR ---
post orthodontic laboratory technician Patient returned from orthodontic laboratory technician with ekos system back in place. Plan to stop at 2029. Patient notified. Site clean dry and intact. Good pulses. Feet warm. Patient denies any discomfort. Vital signs are stable. Patient also notified of plan to return to orthodontic laboratory technician tomorrow am for further imaging.
[2017-03-02] MEDS: HYDROmorphone 1 mg/mL Inj IV PRN (20:14)
[2017-03-02] MEDS ORDERED: KCl 40 mEq/500 mL D5W(K 3 - 3.7 & Creat < 2) IV ONE (23:35)
[2017-03-03] VITALS (7 sets, daily range): BP systolic 117–153; BP diastolic 68–93; PULSE 72–103; RESP 14–21; O2SAT 96–99
--- NOTE | 2017-03-03 01:40 | NUR ---
P) Sleep apnea Pt.'s respiratory rate drops to <8 when asleep and SPO2 drops into the 80's. I) O2 applied per N/C. E) Pt. resting quietly, SPO2 in the upper 90's.
[2017-03-03] MEDS: Ondansetron 2 mg/mL 2 mL Inj IVPUSH PRN ×3 (04:11→23:32)
[2017-03-03] MEDS: HYDROmorphone 1 mg/mL Inj IV PRN ×3 (04:14→23:32)
[2017-03-03] MEDS: 0.9% Sodium Chloride 1,000 ML IV SCH ×2 (07:48→19:00)
[2017-03-03] MEDS ORDERED: Heparin 1,000 Units/500 mL NS Premix IV ONE (09:55)
[2017-03-03] MEDS ORDERED: Heparin 1,000 Unit/mL 10 mL Inj ONE (09:58)
[2017-03-03] MEDS ORDERED: fentaNYL-PF 50 mCg/mL 2 mL Inj ONE (09:59)
[2017-03-03] MEDS ORDERED: Alteplase (Cathflo) Inj 10 MG in 0.9% Sodium Chloride 240 ML IV ONE (10:10)
[2017-03-03] MEDS ORDERED: Heparin 10,000 Unit/1,000 mL NS Premix IV ONE (10:10)
--- NOTE | 2017-03-03 12:12 | DI96 ---
[address] [address] PERIPHERAL CATHETERIZATION/INTERVENTION REPORT PATIENT: JAYME MOORE : 1950 MR#: [id number] ADMIT: 02/28/2017 JOB ID: [id number] DATE OF PROCEDURE: 03/03/2017 PATIENT PROFILE: The patient is a 66-year-old woman who has a deep venous thrombosis of the left lower extremity. She underwent EKOS catheter treatment. PROCEDURE: 1. Conscious sedation for 54 minutes. 2. Left lower extremity venogram. 3. Catheter-directed thrombolysis to the left common femoral vein and left external iliac vein. COMPLICATIONS: None. METHOD: The patient was put in the supine position. Left lower extremity venogram was performed via the existing venous sheath in the left popliteal fossa. This was performed in the AP view. It demonstrated a large residual thrombus in the left common femoral vein and distal portion of the left external iliac vein. The patient was then put in the prone position. The left popliteal fossa was prepped and draped under standard sterile technique. The venous sheath was exchanged to a new 6-[place] venous sheath. A [place] [employer] wire was directed into the inferior vena cava. An EKOS catheter with a treatment length of 12 cm was placed in the left external iliac vein and left common femoral vein. This was secured in situ. Catheter-directed thrombolysis will be initiated at 1 mg/hour for 10 hours. The patient was transferred to intensive care unit in stable condition. TOTAL CONTRAST USED: 20 cc. FLUOROSCOPY TIME: 0.3 minutes. RESULTS: 1. Good venous flow from the left popliteal vein into the inferior vena cava. However, there is a large residual thrombus in the left common femoral vein and left external iliac vein. 2. Catheter-directed thrombolysis to the left common femoral vein and left external iliac vein was initiated. [facility]
--- NOTE | 2017-03-03 13:00 | PCM.PNMED ---
Subjective Date of Service Mar 03, 2017 Subjective Patient 66yof without significant health history present with thromboembolic disease, saddle embolism, Left leg DVT, s/p x3 ECOS, stable. Patient without new complaints today. Mild gingival bleeding again today. No diarrhea, vomiting, or hemoptysis. Nursing note periods of apnea overnight 2nd, improved with O2. Exam Vital Signs Vital Sign - Last Date Time Temp Pulse Resp B/P Pulse Ox O2 Delivery O2 Flow Rate FiO2 03/03/17 11:45 Supplement Oxygen 03/03/17 11:45 36.7 81 16 142/72 96 2.00 03/02/17 12:30 98 Intake and Output 03/02/17 03/02/17 03/03/17 Cumulative From/Thru 15:00 23:00 07:00 02/28/17 11:39 - 03/03/17 06:21 Intake Total 1949 ml 2341 ml 32684 ml Output Total 1100 ml 1800 ml 4935 ml Balance 849 ml 541 ml 8743 ml Intake Oral 150 ml 2430 ml IV Total 1949 ml 2191 ml 50005 ml Output Urine Total 1100 ml 1800 ml 4935 ml Exam General: No acute distress, appropriately interactive, no conversation or dysrhythmia HEENT: no gingival bleeding. Normocephalic, atraumatic. PERRLA, EOMI, Anicteric sclerae, mild gingival bleeding noted right lower jaw Neck: cannot appreciate JVD, No bruits. No lymphadenopathy or thyromegaly. Cardiovascular: Regular rate and rhythm with no murmurs, rubs, or gallops appreciated Pulmonary: Bilateral air sound, mild coarse breath of the lower basis, otherwise no crackles or wheezes. Abdomen: +Bowel sound, Soft, nontender, nondistended. Extremities: No clubbing or cyanosis, no lymphedema, unilateral left leg 1+ pitting edema up to the thigh, no tenderness, no redness or heat. pedal pulses 2/2. Skin: Normal temperature, turgor, and texture; no rash. No visualized skin ulcer. Neurological: CN II-VII grossly intact, moving equally on all 4 extremities Psychiatric: Normal mood and affect. AOx3 Lab and Diagnostics Result Diagram: 03/03/17 1230 03/03/17 0400 Assessment & Plan Patient is a 66-year-old female with a medical history significant for hypertension presents with left leg pain and shortness of breath, found to have massive pulmonary embolism with left leg DVT. 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 -Anticoagulation for life, considering Eliquis. Normocytic anemia, not present on admission, new -Partially hemodilution, concern for bleeding -Trending H&H Q6h. pediatric tube blood draw -Transfuse if hemoglobin less than 7. Kidney insufficiency, resolved -Likely right heart failure, hypoperfusion Transaminitis, resolving -AST and alkphos elevated -perhaps congested liver -lipase negative Leukocytosis, resolved -likely stressed induced Hyponatremia, resolved -plasma osmo 280, patient euvolumic -uncertain etiology Hypertension -Holding lisinopril secondary to hypotension DVT prophylaxis: Heparin drip as above Status full code Disposition: 1-2 days monitoring for bleeding s/p ECOS and transitioning patient to an oral anticoagulant. Resuscitation Status: CPR: Attempt Resuscitation Time spent 30 minutes Attending Statement I interviewed and examined the patient on rounds today. I agree with the assessment and plan as stated above. Bao Curry DO Mar 03, 2017 13:00 Mike Gimenez MD Mar 03, 2017 18:32
--- NOTE | 2017-03-03 14:11 | NUR ---
EKOS Patient was taken to lab animal technician today at 0940. Heparin drip infusing per peripheral IV site per DVT protocol was stopped at 0920 production assembler to lab animal technician. Heparin 2units/ml and coolant continued to infuse through left popliteal sheath ports as previously. Patient returned from lab animal technician at 1059 and placed on EKOS in her room by lab animal technician staff. Fluids infusing per left popliteal sheath/catheter: coolant NS at 50ml/h, heparin 2units/ml and TPA infusing per appropriate ports. Patient denied having any pain or discomfort. Palpable but weak dorsalis pedal bilateral pulses were present and bilateral posterior tibia pulses were addible through Doppler- left appeared to be of weaker sound then the right- no change. IV fluids NS at 100ml/h was resumed. Patient was started on heparin drip 50units/ml at 600units/h per peripheral IV as directed by MD. Q6H labs were ordered by MD- consulted with MD-do not treat PTT results. TPA catheter to be pulled today at 2200 per MD statement and sheath to be pulled 1h after that. Patient to be started on DVT heparin protocol after sheath removed this evening. Attending vamper stated that he consulted with attending hospitalized regarding this orders changes- continue assessment.
--- NOTE | 2017-03-03 16:00 | DRSVH ---
PROCEDURE: US AORTA RETROPERITONEAL LIMITED INDICATIONS: 66 year-old female with possible retroperitoneal hematoma and right groin bleed. TECHNIQUE: Real time scanning was performed of the aorta and iliac arteries, with image documentatio n. COMPARISON: None. FINDINGS: No free fluid is noted within the right abdomen. The retroperitoneal structures are not well identifi ed inferior to the kidney. IMPRESSION: No sonographic evidence for retroperitoneal hematoma. Noncontrast abdomen and pelvic CT w ould provide more sensitive evaluation if clinically needed. Dictated by: Brett Smith M.D. on 03/03/2017 at 15:57 Approved by: Brett Smith M.D. on 03/03/2017 at 15:58
--- NOTE | 2017-03-03 22:14 | NUR ---
P) Bleeding Pt. alert and oriented, gums still oozing blood, pt. applying pressure and changing 4x4's PRN, premedicated for pain for Ekos wire removal, pt. tolerated procedure well. Has developed bruising in popliteal space and back of thigh, R groin still a bit tender to touch. Dorsalis pulse stronger than yesterday, unable to palpate posterior tibial pulse. I) Cont. close monitoring until sheath removal and after for bleeding. Heparin now on hold until 2 hours after sheath removal. E) Dozing with eyes closed, sill a bit tachycardic with heart rate near or slightly over 100bpm and RR in the 20's.
--- NOTE | 2017-03-03 23:30 | NUR ---
Transfer Pt. transferred to [facility] at approx. 2330, dressing over calf where sheath was removed is C/D/I, report given to accepting RN, pt. transferred in her bed with all her belongings including her glasses and clothes, tolerated move well.
[2017-03-04] MEDS: Heparin 25K Unit/500mL 0.45 NS 25,000 UNIT in IV Premix 1 EACH IV SCH (01:09)
[2017-03-04 04:26] VITALS: BP 127/78; PULSE 90; RESP 18; O2SAT 98
[2017-03-04 06:00] VITALS: PULSE 99
[2017-03-04 08:40] VITALS: BP 148/102; PULSE 109; RESP 16; O2SAT 99
--- NOTE | 2017-03-04 09:15 | NUR ---
Right shoulder Pt states Right shoulder bruise is increasing. 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 Assessed anterior and posterior shoulder, anterior bump noted, posterior bump noted. Pt states bruise continues to grow. Educated pt regarding heparin IV. Pt acknowledge and understands. notified to assess. Care continues.
[2017-03-04] MEDS: 0.9% Sodium Chloride 1,000 ML IV SCH ×2 (11:08→17:45)
--- NOTE | 2017-03-04 11:47 | NUR ---
NUTRITION ASSESSMENT: ASSESS: 66 YO female admitted with saddle and popliteal PE's, status post ECOS x 3. The patient has had nausea and is hesitant to have her diet advanced. However, Dr. Gimenez authorized diet advance this morning during case management rounds. She has had minimal PO intake since admission x 4 D. PMHx: HTN. DIET: General. PO intake full liquid diet x 3 days prior 25% - 100% trays. LABS: Reviewed. Cr 0.55. MEDICATIONS: Reviewed. NUTRITION FOCUSED PHYSICAL ASSESSMENT: GI symptoms / stool: No stool reported. Dat: 16. Skin Integrity: No issues reported. ANTHROPOMETRICS: Current Wt: 59.09 kg BMI: 22.0 kg/m2. Admit weight: 59.09 kg. IBW: 47.8 kg (123.6% IBW) ESTIMATED NEEDS: Calories: 1477 - 1773 kcal (25 - 30 kcal / kg BW) Protein: 47 - 71 g protein (0.8 - 1.2 g / kg BW) NUTRITION DIAGNOSIS: 1) Inadequate oral intake related to nausea, as evidenced by inconsistent PO intake full liquids x 3 D. INTERVENTION: 1) Changed diet order to general, per Dr. Gimenez's authorization. 2) Will add Ensure to trays to supplement her inconsistent intake. MONITOR/EVALUATE: PO intake, labs, weight, nutritional status. Follow up per moderate nutrition risk guidelines.
[2017-03-04 17:02] VITALS: BP 119/80; PULSE 93; O2SAT 97
--- NOTE | 2017-03-04 17:35 | PCM.PNMED ---
Subjective Date of Service Mar 04, 2017 Subjective 66-year-old woman with extensive DVT and pulmonary embolism status post ultrasonic TPA therapy. Mild musculoskeletal discomfort at sites of percutaneous interventions. Concerned about bruising with subcutaneous nodularity over right anterior chest and right scapular region. No further gingival bleeding. Feels otherwise well. Exam Vital Signs Vital Sign - Last Date Time Temp Pulse Resp B/P Pulse Ox O2 Delivery O2 Flow Rate FiO2 03/04/17 17:02 36.7 93 119/80 97 Room Air 03/04/17 08:40 16 03/04/17 04:26 2.00 03/03/17 16:21 Intake and Output 03/03/17 03/03/17 03/04/17 Cumulative From/Thru 15:00 23:00 07:00 02/28/17 11:39 - 03/04/17 06:48 Intake Total 2446 ml 1167 ml 24645 ml Output Total 1450 ml 1650 ml 8035 ml Balance 996 ml -483 ml 9256 ml Intake Oral 650 ml 300 ml 3380 ml IV Total 1796 ml 867 ml 21548 ml Output Urine Total 1450 ml 1650 ml 8035 ml Exam General: Healthy-appearing woman in no acute distress HEENT: sclerae anicteric, oral mucosa moist Neck: no JVD Chest: clear to auscultation; right upper anterior thoracic ecchymosis with 1 x 3 cm subcutaneous nodularity, nontender. Similar ecchymosis with nodularity and right scapular region. Cardiac: S1S2, no murmur Abdomen: BS normal, non-tender Extremities: Right groin and left popliteal catheter sites bandaged without swelling or ecchymosis. Mild pitting edema of right leg. Neuro: A&O, cranial nerves symmetric, motor strength 5/5, coordination normal IVs and Medications Medications Reviewed: Medications were reviewed in detail Lab and Diagnostics Result Diagram: 03/04/17 1110 03/04/17 0545 Assessment & Plan Patient is a 66-year-old female with a medical history significant for hypertension presents with left leg pain and shortness of breath, found to have massive pulmonary embolism with left leg DVT. Thromboembolic disease, acute, present on admission.Unprovoked. DVT PE protocol in place/ECOS treatments to lungs and legs per cardiology. Mild gingival bleeding. Cutaneous ecchymoses with small subcutaneous hematomas in upper right thorax. Not clinically significant. -ECOS 4 treatments per cardiology to reduce clot burden in lungs and left lower leg -Initiate apixaban 10 mg twice a day, and discontinue Heparin drip 2 hours later -Discontinue monitor tech - Discontinue Abdalla - Discontinue IV fluids and encourage by mouth intake - Mobilize patient Normocytic anemia, not present on admission, new -Partially hemodilution, concern for bleeding -Discontinue serial hemoglobin measurements Acute Kidney injury, present on admission, acute. Initial serum creatinine 1.64. Now resolved. Creatinine 0.5 to -Likely right heart failure, hypoperfusion Transaminitis, resolving -AST and alkphos elevated -perhaps congested liver -lipase negative Leukocytosis, resolved -likely stressed induced Hyponatremia, present on admission. Resolved. Initial serum sodium 130. -plasma osmo 280, patient euvolumic Hypertension - Resume lisinopril DVT prophylaxis: Heparin drip as above Status full code Disposition: Anticipate medically ready for discharge on 03/05/17 Resuscitation Status: CPR: Attempt Resuscitation Time spent 35 minutes Mike Gimenez MD Mar 04, 2017 17:35
--- NOTE | 2017-03-04 18:00 | NUR ---
Heparin/Eliquis/Abdalla DC/Ambulation Pt Heparin drip DC'd at 1500 per MD order, 2 hours post Eliquis administration at 1300. Abdalla DC'd at approximately 1315, pt voided 700 ml at 1400. Pt ambulating length of hallway with this RN SBA. Pt up to chair for 3 hours with legs elevated. Pt resting at this time. Care continues.
[2017-03-04 20:59] VITALS: BP 114/80; PULSE 96; RESP 20; O2SAT 94
[2017-03-05 00:54] VITALS: BP 119/77; PULSE 90; RESP 18; O2SAT 99
--- NOTE | 2017-03-05 06:19 | NUR ---
NOC PT has slept well through the night. PT c/o mild pain upon assessment and was given tylenol. PT also requested something for sleep.PT was slightly anxious at the time. .5 ativan given with good results. PT ambulates to BR with SBA. Gait is steady. PT has some trace edema noted to bilateral feet. Weak DP palpable bilaterally. R groin site unchanged. L popliteal unchanged. There is some new bruising noted to L upper anterior chest. There are 2 bruises noted here. THere is also new bruising noted to L lower rib area and extended slighlty into lateral, thoracic region. These bruises are unchanged. MD notified of these with no interventions ordered. THere are no signs of active bleeding at any puncture sites or iv sites. No epistaxis. VS WNL. 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 WIll CTM with current poc.
[2017-03-05 08:00] VITALS: BP 127/55; PULSE 102; RESP 17
--- NOTE | 2017-03-05 10:49 | PCM.DIMED ---
Discharge Instructions Date of Service Mar 05, 2017 Dates of Hospitalization Feb 28, 2017 at 17:26 Discharge Diagnosis Discharge Diagnosis Thromboembolic disease -acute, present on admission, stable Normocytic anemia -not present on admission, new, stable Acute Kidney injury -present on admission, acute. Transaminitis -Present on admission, resolved Leukocytosis -resolved Hyponatremia -present on admission. Resolved Hypertension -Present on admission, chronic, stable Medication Instructions Additional med instructions Continue taking your lisinopril for your high blood pressure. Stop taking Aspirin 325mg daily, and instead Aspirin 81mg daily. I have added 1 medication to your regimen. Eliquis---This is a blood thinning medication to reduce your risk of forming blood clots. -10mg twice daily for 7 day -then, 5mg twice daily thereafter Diet Discharge Diet: No restrictions Activity Discharge Activity: No restrictions Call your provider Call your provider for: Bleeding, Weakness (unilateral) Patient Instructions Follow-up plan You admitted for blood clots in the legs and in your lungs. Majority of your blood clots have been removed. Please take your Eliquis as instructed above. I advise that you follow-up with your primary care provider within one week. Please call your PCP to make this appointment. As stated before, the root cause of blood clots is still unknown. This will need to be worked up by your primary care provider. Call 911 for any of the following: You feel lightheaded, short of breath, and have chest pain. You cough up blood. You have a seizure. You have slurred speech, increased sleepiness, or problems seeing, talking, or thinking. You have weakness or cannot move your arm or leg on one side of your body. Seek care immediately if: You feel faint. You have a severe headache. Your heart is beating faster than normal. Contact your healthcare provider if: The skin on any part of your legs or hips turns purple. Your gums or nose bleed. You see blood in your urine or bowel movements. Your bowel movements are black or darker than normal. You have questions or concerns about your condition or care. Medicines: Blood thinners help treat the PE and prevent new clots from forming. Examples of blood thinners include heparin, rivaroxaban, apixiban, and warfarin. The following are general safety guidelines to follow while you are taking a blood thinner: Watch for bleeding and bruising. Watch for bleeding from your gums or nose. Watch for blood in your urine and bowel movements. Use a soft washcloth on your skin, and a soft toothbrush to brush your teeth. This can keep your skin and gums from bleeding. If you shave, use an electric shaver. Do not play contact sports. Tell your dentist and other healthcare providers that you take a blood thinner. Wear a bracelet or necklace that says you take this medicine. Do not start or stop any medicines unless your healthcare provider tells you to. Many medicines cannot be used with blood thinners. Tell your healthcare provider right away if you forget to take the blood thinner , or if you take too much. Prevent another PE: Wear pressure stockings. The stockings are tight and put pressure on your legs. This improves blood flow and helps prevent clots. Wear the stockings during the day. Do not wear them when you sleep. Exercise regularly. Ask about the best exercise plan for you. When you travel by car or work at a desk, take breaks to stand up and move around as much as possible. Rotate your feet in circles often if you sit for a long period of time. Maintain a healthy weight. Ask your healthcare provider how much you should weigh. Ask him to help you create a weight loss plan if you are overweight. Do not smoke. Nicotine and other chemicals in cigarettes and cigars can damage blood vessels and increase your risk for another PE. Ask your healthcare provider for information if you currently smoke and need help to quit. E- cigarettes or smokeless tobacco still contain nicotine. Talk to your healthcare provider before you use these products. Follow-up with PCP in: 1 week Bao Curry DO Mar 05, 2017 10:49
[2017-03-05] MEDS ORDERED: APIX5TAB PO (10:55)
--- NOTE | 2017-03-05 12:53 | NUR ---
Discharge Pt D/Cd home in stable condition, with her brother. MD/meds/follow up and when to call 911 discussed with patient as well as bleeding risk and med side effects. No questions at this time from pt. Case management faxed Rx to [facility]. [facility] coupon given to pt along with instructions. PIV and TELE D/Cd.
--- NOTE | 2017-03-05 13:45 | NUR ---
Social Work Note: Discharge Data& Assessment: Per pt is medically ready to discharge. Ximena Blanca is a 66 year old female admitted on 02/28/2017 for Left leg swollen and SOB. Per MD pt is medically improved and ready for discharge. PROGRAM DIRECTOR GROUP WORK met with pt at bedside to confirm discharge plan and assess for any unmet needs, PROGRAM DIRECTOR GROUP WORK role explained. Pt brother transporting her home today. Pt at home for extra support. Pt did request her prescription be faxed to [facility] so it can be ready for filler picker on her way home this afternoon. Pt prescription has been faxed per her request. Pt ambulating SBA per RN. Pt denies any other needs. MD does not identify any concerns for pt capacity for self care. No other discharge needs or MD orders identified. Plan: Per pt is medically ready to discharge home via POV. No other discharge needs or MD orders identified. All updated and agreeable to plan. CY Perez
--- NOTE | 2017-03-05 13:58 | PCM.DC.MED ---
Discharge Summary Date of Service Mar 05, 2017 Dates of Hospitalization Date of Hospital Admission Feb 28, 2017 at 17:26 Date of Discharge: Mar 05, 2017 Providers: Admitting Physician: Percy Jackson MD Primary Care Physician: Other,Physician Attending Physician: Mike Gimenez MD Diagnosis at Time of Discharge Diagnosis at Time of Discharge Thromboembolic disease -acute, present on admission, stable Normocytic anemia -not present on admission, new, stable Acute Kidney injury -present on admission, acute. Transaminitis -Present on admission, resolved Leukocytosis -resolved Hyponatremia -present on admission. Resolved Hypertension -Present on admission, chronic, stable Procedures XRay, CTs & MRIs PROCEDURE: US VEINOUS LEG DUPLEX UNILATERAL, LEFT INDICATIONS: ho DVt, swelling IMPRESSION: 1. Extensive deep venous thrombosis demonstrated throughout the left lower extremity extending from the common femoral to popliteal veins. Findings were reported to Dr. Escalante on 02/28/17 at 2:[address] mri technologist. Dictated by: Joshua Olson M.D. on 02/28/2017 at 14:54 PROCEDURE: CT ANGIO CHEST PULMONARY EMBOLISM ([id number]) INDICATIONS: dyspnea, h/o PE, leg swelling FINDINGS: Pulmonary arteries: Filling defects in the pulmonary arteries are consistent with acute pulmonary embolic disease, with the largest lesion being a saddle embolus at the bifurcation of the left main pulmonary artery. There is less prominent and more eccentric thrombus in the proximal portion of the right lower lobe artery, possibly subacute or chronic. Lungs and pleura: Lungs show areas of subpleural atelectasis, likely related to pulmonary embolic disease. No pleural effusions or pneumothorax. Central and peripheral airways are patent. Mediastinum: Heart size is normal, without pericardial effusion. No mediastinal or hilar adenopathy. Thoracic aorta is normal in caliber and enhancement. Esophagus is normal in caliber, without hiatal hernia. Bones and chest wall: No suspicious bony lesions. Ribs and thoracic spine appear intact throughout. Thyroid gland appears normal. No axillary or supraclavicular adenopathy. Abdomen: Visualized upper abdominal solid organs appear normal in the early arterial phase of enhancement. IMPRESSION: 1. Exam is positive for pulmonary embolic disease, left greater than right. 2. Patchy bilateral subpleural areas of atelectasis, likely related to embolic disease. Mild elevation of the left hemidiaphragm. Note: Findings discussed with Dr. Sierra in the ED at 1410 hrs. on 02/28/2017 Dictated by: Priyank Latham M.D. on 02/28/2017 at 14:11 PROCEDURE: US AORTA RETROPERITONEAL LIMITED IMPRESSION: No sonographic evidence for retroperitoneal hematoma. Noncontrast abdomen and pelvic CT would provide more sensitive evaluation if clinically needed. Dictated by: Brett Smith M.D. on 03/03/2017 at 15:57 Invasive Procedures DATE OF SERVICE: 02/28/2017 PATIENT PROFILE: The patient is a 66-year-old lady who presented with submassive bilateral pulmonary emboli with hemodynamic compromise. PROCEDURE: 1. Conscious sedation for 25 minutes. 2. Central venous access from the right groin under ultrasound guidance twice. 3. EKOS catheter placement in the right middle lobe branch. 4. EKOS catheter placement in the left lower lobe branch. 5. Catheter-directed thrombolysis initiated. RESULTS: 1. Successful EKOS catheter placement in the right middle lobe branch and left lower lobe branch. 2. Catheter-directed thrombolysis initiated. Percy Jackson MD 02/28/17 1743 DATE:03/01/2017 PATIENT PROFILE: The patient is a 66-year-old lady who presented with submassive bilateral pulmonary emboli. She underwent catheter directed thrombolysis to her pulmonary emboli yesterday. She was also found to have occlusive deep venous thrombosis of the left lower extremity. PROCEDURE: 1. Conscious sedation for 32 minutes. 2. Venous access to the left popliteal vein under ultrasound guidance. 3. Left common femoral venogram. 4. Left common iliac venogram. 5. Catheter-directed thrombolysis to the left femoral vein, left common femoral vein, left external iliac vein and left common iliac vein. RESULTS: 1. Deep venous thrombosis of the left femoral vein and extended to the left common iliac vein. 2. Catheter-directed thrombolysis to the left common iliac vein, left external iliac vein, left common femoral vein and left femoral vein was initiated at 1.2 mg/hour for 10 hours. Percy Jackson MD 03/01/17 1107 DATE OF PROCEDURE:03/02/2017 PATIENT PROFILE: The patient is a 66-year-old woman who presented with bilateral pulmonary emboli and deep venous thrombosis of the left lower extremity. She underwent catheter-directed thrombolysis to the pulmonary emboli on February 28, 2017, and catheter-directed thrombolysis to the left lower extremity on March 01, 2017. She reports feeling better in every way. Her breathing is better. The pain in her left leg has disappeared. PROCEDURE: 1. Conscious sedation for 39 minutes. 2. Left lower extremity venogram. 3. Catheter-directed thrombolysis to the left common iliac vein, left external iliac vein and left common femoral vein. RESULTS: 1. The left femoral vein is now free of thrombus. 2. Residual thrombus in the left common femoral vein, left iliac vein and left common iliac vein. 3. Catheter-directed thrombolysis was initiated to the left common iliac, left external iliac and left common femoral veins. It will be infused at 1 mg/hour for 10 hours. Percy Jackson MD 03/02/17 0954 DATE OF PROCEDURE:03/03/2017 PATIENT PROFILE: The patient is a 66-year-old woman who has a deep venous thrombosis of the left lower extremity. She underwent EKOS catheter treatment. PROCEDURE: 1. Conscious sedation for 54 minutes. 2. Left lower extremity venogram. 3. Catheter-directed thrombolysis to the left common femoral vein and left external iliac vein. RESULTS: 1. Good venous flow from the left popliteal vein into the inferior vena cava. However, there is a large residual thrombus in the left common femoral vein and left external iliac vein. 2. Catheter-directed thrombolysis to the left common femoral vein and left external iliac vein was initiated. Percy Jackson MD 03/03/17 1038 Brief History Patient carries a medical history significant for only hypertension. Per patient, she states significant left leg swelling suddenly appeared last Monday morning (02/25) when she woke up, extending from thigh to feet. Swelling increased by Monday with associated nausea and vomiting. And on Monday , patient additionally has palpitation and diaphoretic. Patient sought medical attention after she became more dyspneic with exertion and lightheadedness today. Ambulate limited to 5 feet with associated shortness of breath. Pt reports that she is a fairly active person, doing yardwork before Monday, and denies any recent traveling or periods of immobility. She denies any prior histories of miscarriages. Interestingly, patient reports a family history of blood clots, great grandfather positive for blood clots in the lower legs, and mother with "small leg veins". Pt had a similar episode of leg swelling in the past, right leg swelling. Patient reports no workup was done nor medication given however. Recently, patient has noted significant weight loss, 10-15 pounds within the last 6 months. She reports early satiety. Patient though denies any abdominal pain, black tarry stool, constipation, hematemesis, or ever completed a screening colonoscopy. In the ED, patient found to have significant left lower leg swelling with tachycardia and blood pressure 72/52. Emergent duplex found extensive DVT thrombosis extending from the left common femoral to the popliteal veins. CT angio showed saddle emboli in the left main pulmonary arteries and in the proximal portion of the right lower lobe artery. Cardiology was consulted, and agreed evaluate patient for EKOS prior to admission into CCU. Hospital Course Patient is a 66-year-old female with a medical history significant for hypertension presents with left leg pain and shortness of breath, found to have massive pulmonary embolism with left leg DVT. Thromboembolic disease, acute, present on admission. Unprovoked. DVT PE protocol in place/ECOS treatments to lungs and legs per cardiology. Mild gingival bleeding. Cutaneous ecchymoses with small subcutaneous hematomas in upper right thorax. Not clinically significant. stable -EKOS 4 treatments per cardiology to reduce clot burden in lungs and left lower leg -Initiate apixaban 10 mg twice a day -Recommend follow-up outpatient for possible causes. Patient had recent unintentional weight lost plus early satiety Normocytic anemia, not present on admission, new, stable on discharge. -Partially hemodilution -no signs of GI bleeding, retroperitoneal US negative for blood Acute Kidney injury, present on admission, acute. resolved. Initial serum creatinine 1.64. Now resolved. Creatinine 0.5 to -Likely right heart failure, hypoperfusion Transaminitis, resolved -AST and alkphos elevated -perhaps congested liver -lipase negative Leukocytosis, resolved -likely stressed induced Hyponatremia, present on admission. Resolved. Initial serum sodium 130. -plasma osmo 280, patient euvolumic Hypertension - Resume lisinopril Exam Vital Signs (Last) Date Time Temp Pulse Resp B/P Pulse Ox O2 Delivery O2 Flow Rate FiO2 03/05/17 08:00 36.8 102 17 127/55 Room Air 03/05/17 00:54 99 2.00 9/8/17 16:21 Exam General: No acute distress, appropriately interactive, no conversation or dysrhythmia HEENT: no gingival bleeding. Normocephalic, atraumatic. PERRLA, EOMI, Anicteric sclerae, mild gingival bleeding noted right lower jaw Neck: no JVD, No bruits. No lymphadenopathy or thyromegaly. Cardiovascular: Regular rate and rhythm with no murmurs, rubs, or gallops appreciated Pulmonary: Bilateral air sound, mild coarse breath of the lower basis, otherwise no crackles or wheezes. Abdomen: +Bowel sound, Soft, nontender, nondistended. Extremities: No clubbing or cyanosis, no lymphedema, no pitting edema of lower extremity Skin: Normal temperature, turgor, and texture; no rash. No visualized skin ulcer. Neurological: CN II-VII grossly intact, moving equally on all 4 extremities Psychiatric: Normal mood and affect. AOx3 Test 02/28/17 12:00 02/28/17 12:23 02/28/17 18:42 03/01/17 05:53 Prothrombin Time 10.3sec (8.1-12.5) Prothromb Time International Ratio 0.96ratio D-Dimer 2.29mg/L FEU (<0.50) Hemoglobin A1c 5.0% (4.8-5.6) Osmolality 280 (275-300) Troponin T < 0.010ug/L (0.0-0.011) Pro-B-Type Natriuretic Peptide 299.9pg/mL (0-287) Prealbumin 21mg/dL (20-40) Lipase 25U/L (13-60) Lactic Acid Level 1.0mmol/L (0.4-2.0) White Blood Count 5.3th/mm3 (3.8-10.1) Red Blood Count 3.15mil/mm3 (3.90-5.20) Mean Corpuscular Volume 102.2fL (81-100) Mean Corpuscular Hemoglobin 35.6pg (27.0-35.0) Mean Corpuscular Hemoglobin Concent 34.8% (32.0-37.0) Red Cell Distribution Width 15.2% (12.3-15.4) Neutrophils (%) (Auto) 69.5% (40-74) Lymphocytes (%) (Auto) 16.7% (14-46) Monocytes (%) (Auto) 10.1% (4-12) Eosinophils (%) (Auto) 2.4% (0-5) Basophils (%) (Auto) 0.9% (0-3) Total Bilirubin 0.9mg/dL (0.0-1.2) Aspartate Amino Transf (AST/SGOT) 37U/L (0-50) Alanine Aminotransferase (ALT/SGPT) 17U/L (0-32) Alkaline Phosphatase 172U/L (25-165) Total Protein 4.9g/dL (6.4-8.4) Albumin 2.4g/dL (3.4-5.0) Test 03/02/17 04:50 03/02/17 17:01 03/05/17 02:00 03/05/17 11:13 Magnesium Level 2.1mg/dL (1.6-2.6) Blood Urea Nitrogen 6mg/dL (8-27) Estimat Glomerular Filtration Rate 156mL/min (>59) Glucose Level 116mg/dL (60-99) Calcium Level 7.6mg/dL (8.5-10.1) Hemoglobin 10.0g/dL (12.0-15.6) Sodium Level 137mEq/L (134-144) Potassium Level 3.9mEq/L (3.5-5.2) Chloride Level 104mEq/L (97-108) Carbon Dioxide Level 23mmol/L (18-29) Creatinine 0.61mg/dL (0.57-1.00) Hematocrit 32.8% (35.0-46.0) Platelet Count 209bil/L (150-400) Activated Partial Thromboplast Time 25.1sec (22.8-33.0) Fibrinogen 181mg/dL (157-380) Discharge Medications Discharge Medications Apixaban (Eliquis) 5 Mg Tablet 10 MG PO BID 10mg BID for a total of 7 days then, 5mg BID thereafter Prescribed by: ANH BEAN DO Lisinopril (Lisinopril) 20 Mg Tablet 20 MG PO QAM (Reported) As needed Ibuprofen (Ibuprofen) 200 Mg Capsule 200-400 MG PO Q6H PRN PRN For Pain ( Reported) Melatonin (Melatonin) 10 Mg Tablet 10 MG PO HS PRN PRN For Insomnia (Reported) diphenhydrAMINE HCl (Benadryl) 25 Mg Capsule 25-50 MG PO DAILY PRN PRN ALLERGIES (Reported) Additional med instructions Continue taking your lisinopril for your high blood pressure. Stop taking Aspirin 325mg daily, and instead Aspirin 81mg daily. I have added 1 medication to your regimen. Eliquis---This is a blood thinning medication to reduce your risk of forming blood clots. -10mg twice daily for 7 day -then, 5mg twice daily thereafter Followup Plan Follow-up plan You admitted for blood clots in the legs and in your lungs. Majority of your blood clots have been removed. Please take your Eliquis as instructed above. I advise that you follow-up with your primary care provider within one week. Please call your PCP to make this appointment. As stated before, the root cause of blood clots is still unknown. This will need to be worked up by your primary care provider. Call 911 for any of the following: You feel lightheaded, short of breath, and have chest pain. You cough up blood. You have a seizure. You have slurred speech, increased sleepiness, or problems seeing, talking, or thinking. You have weakness or cannot move your arm or leg on one side of your body. Seek care immediately if: You feel faint. You have a severe headache. Your heart is beating faster than normal. Contact your healthcare provider if: The skin on any part of your legs or hips turns purple. Your gums or nose bleed. You see blood in your urine or bowel movements. Your bowel movements are black or darker than normal. You have questions or concerns about your condition or care. Medicines: Blood thinners help treat the PE and prevent new clots from forming. Examples of blood thinners include heparin, rivaroxaban, apixiban, and warfarin. The following are general safety guidelines to follow while you are taking a blood thinner: Watch for bleeding and bruising. Watch for bleeding from your gums or nose. Watch for blood in your urine and bowel movements. Use a soft washcloth on your skin, and a soft toothbrush to brush your teeth. This can keep your skin and gums from bleeding. If you shave, use an electric shaver. Do not play contact sports. Tell your dentist and other healthcare providers that you take a blood thinner. Wear a bracelet or necklace that says you take this medicine. Do not start or stop any medicines unless your healthcare provider tells you to. Many medicines cannot be used with blood thinners. Tell your healthcare provider right away if you forget to take the blood thinner , or if you take too much. Prevent another PE: Wear pressure stockings. The stockings are tight and put pressure on your legs. This improves blood flow and helps prevent clots. Wear the stockings during the day. Do not wear them when you sleep. Exercise regularly. Ask about the best exercise plan for you. When you travel by car or work at a desk, take breaks to stand up and move around as much as possible. Rotate your feet in circles often if you sit for a long period of time. Maintain a healthy weight. Ask your healthcare provider how much you should weigh. Ask him to help you create a weight loss plan if you are overweight. Do not smoke. Nicotine and other chemicals in cigarettes and cigars can damage blood vessels and increase your risk for another PE. Ask your healthcare provider for information if you currently smoke and need help to quit. E- cigarettes or smokeless tobacco still contain nicotine. Talk to your healthcare provider before you use these products. Discharge Diet: No restrictions Discharge Activity: No restrictions Follow-up with PCP in: 1 week Attending Statement I interviewed and examined the patient on rounds today, and agree with plan above. copies to: MD Antoinette Darden,Anh H Mar 05, 2017 13:58 Mike Gimenez MD Mar 05, 2017 17:17
== END 2017-03-05 14:21 | disposition home or self-care (01) | DRG 299 ==
LOC: SED 11:14 → CCU 17:26 → PCC 03-03 23:14
PROVIDERS: ADMIT Internal Medicine Interventional Cardiology; ATTEND Hospitalist
PROC: 3E06317 Introduction of Other Thrombolytic into Central Artery, Percutaneous Approach (ICD-10-PCS; 2017-02-28)
PROC: 02HR33Z Insertion of Infusion Device into Left Pulmonary Artery, Percutaneous Approach (ICD-10-PCS; 2017-02-28)
PROC: 02HQ33Z Insertion of Infusion Device into Right Pulmonary Artery, Percutaneous Approach (ICD-10-PCS; 2017-02-28)
PROC: 3E03317 Introduction of Other Thrombolytic into Peripheral Vein, Percutaneous Approach (ICD-10-PCS; principal; 2017-03-01)
PROC: 06HD33Z Insertion of Infusion Device into Left Common Iliac Vein, Percutaneous Approach (ICD-10-PCS; 2017-03-01)
PROC: B51C1ZZ Fluoroscopy of Left Lower Extremity Veins using Low Osmolar Contrast (ICD-10-PCS; 2017-03-01)
PROC: 3E03317 Introduction of Other Thrombolytic into Peripheral Vein, Percutaneous Approach (ICD-10-PCS; 2017-03-02)
PROC: 3E03317 Introduction of Other Thrombolytic into Peripheral Vein, Percutaneous Approach (ICD-10-PCS; 2017-03-03)
DX: I82.412 Acute embolism and thrombosis of left femoral vein (principal); I26.92 Saddle embolus of pulmonary artery without acute cor pulmonale; E87.1 Hypo-osmolality and hyponatremia; N17.9 Acute kidney failure, unspecified; I82.432 Acute embolism and thrombosis of left popliteal vein; I10 Essential (primary) hypertension; R74.0 Nonspecific elevation of levels of transaminase and lactic acid dehydrogenase [LDH]; D72.829 Elevated white blood cell count, unspecified